=== PATIENT | male | born 1940 | race Caucasian/White ===

== ENCOUNTER 2016-12-02 21:54 | Emergency (ER) | payer OTHER ==
[2016-12-03 02:36] VITALS: BP 141/74
== END 2016-12-03 02:36 | disposition home or self-care (01) ==
LOC: ED 21:54
DX: S42.202A Unspecified fracture of upper end of left humerus, initial encounter for closed fracture (principal); I10 Essential (primary) hypertension; E78.00 Pure hypercholesterolemia, unspecified; F20.9 Schizophrenia, unspecified; W18.39XA Other fall on same level, initial encounter; Y93.89 Activity, other specified; Y92.89 Other specified places as the place of occurrence of the external cause; Y99.8 Other external cause status
CPT/HCPCS: J2270; Q0162

== ENCOUNTER 2020-04-23 17:27 | Emergency (ER) | payer OTHER ==
[~2020-04-23] VITALS: Ht 172.7 cm; Wt 68.0 kg
[2020-04-23 17:29] VITALS: Ht 172.7 cm; Wt 68.0 kg
[2020-04-23 18:53] LABS: PLATELET COUNT 277 x10^3mcL (152-348); RED CELL DISTRIBUTION WIDTH 13.4 % (12.1-16.2)
[2020-04-23 18:58] LABS: BASOPHIL % 2.4 % (0.2-1.5)
[2020-04-23 19:04] LABS: CALCIUM 8.8 mg/dL (8.5-10.1); CHLORIDE SERUM 106 mmol/L (98-107); CREATININE SERUM 1.1 mg/dL (0.7-1.3); GLUCOSE SERUM 109 mg/dL (74-106); POTASSIUM SERUM 3.6 mmol/L (3.5-5.1); SODIUM SERUM 142 mmol/L (136-145)
[2020-04-23 19:09] LABS: ALKALINE PHOSPHATASE 105 U/L (46-116); ALT/SGPT 26 U/L (16-63); AST/SGOT 21 U/L (15-37); BILIRUBIN TOTAL 0.2 mg/dL (0.20-1.00); TOTAL PROTEIN, SERUM 6.4 g/dL (6.4-8.2)
[2020-04-23 19:11] LABS: ALBUMIN 3.2 g/dL (3.4-5.0)
[2020-04-23 19:37] LABS: rbc morphology (normal/abnorm) NORMAL (NORMAL)
[2020-04-23 23:11] LABS: microscopic required? NO
[2020-04-23 23:20] LABS: UA SPECIFIC GRAVITY >=1.030 (1.005-1.035); urine erythrocyte NEGATIVE (NEGATIVE)
[2020-04-24 00:13] VITALS: BP 124/64
== END 2020-04-24 00:13 | disposition home or self-care (01) ==
LOC: ED 17:27
PROVIDERS: Emergency Medicine
DX: S80.02XA Contusion of left knee, initial encounter (principal); S80.01XA Contusion of right knee, initial encounter; E86.0 Dehydration; Z20.822 Contact with and (suspected) exposure to COVID-19; W17.89XA Other fall from one level to another, initial encounter; Y93.89 Activity, other specified; Y92.89 Other specified places as the place of occurrence of the external cause; Y99.8 Other external cause status
CPT/HCPCS: J1885; J7030